=== PATIENT | female | born 1970 | race Caucasian/White ===

== ENCOUNTER → 2018-04-11 | Outpatient (CLI) | payer BC ==
--- NOTE | 2018-04-11 16:17 | PCVCIMAG ---
APPROVED REPORT Study performed: 04/11/2018 12:04:26 EXAM: Comprehensive 2D, Doppler, and color-flow Echocardiogram Patient Location: Echo lab Room #: 2Status: routine BSA: 1.98 HR: 46 bpmBP: 112/76 mmHg Rhythm: Bradycardia Other Information Study Quality: Good Indications Abnormal ECG Syncope 2D Dimensions IVSd: 7.88 (7-11mm)LVOT Diam: 22.34 (18-24mm) LVDd: 49.44 mm PWd: 6.86 (7-11mm)Ascending Ao: 21.11 (22-36mm) LVDs: 31.11 (25-40mm) Left Atrium: 34.28 (27-40mm) Aortic Root: 25.03 mm LV Single Plane 4CH: 57.00 % LV Single Plane 2CH: 66.62 % Biplane EF: 60.6 % Volumes Left Atrial Volume (Systole) Single Plane 4CH: 63.92 mLSingle Plane 2CH: 54.02 mL Biplane LA Volume: 60.00 mLLA ESV Index: 31.00 mL/m2 Aortic Valve AoV Peak Bakari.: 1.14 m/s AO Peak Gr.: 5.60 mmHgLVOT Max P.76 mmHg LVOT Max V: 0.97 m/s LURDES Vmax: 3.34 cm2 Mitral Valve E/A Ratio: 1.6 MV Decel. Time: 223.62 ms MV E Max Bakari.: 0.75 m/s MV A Bakari.: 0.48 m/s IVRT: 69.20 ms TDI E/Lateral E': 6.25E/Medial E': 9.38 Medial E' Bakari.: 0.08 m/s Lateral E' Bakari.: 0.12 m/s Pulmonary Valve PV Peak Bakari.: 0.76 m/sPV Peak Gr.: 2.30 mmHg Pulmonary Vein P Vein S: 0.38 m/sP Vein A: 0.27 m/s P Vein D: 0.41 m/sP Vein A Dur.: 115.3 msec P Vein S/D Ratio: 0.93 Tricuspid Valve TR Peak Bakari.: 1.59 m/s TR Peak Gr.: 10.06 mmHg TV Vmax: 0.71 m/s Left Ventricle The left ventricle is normal size. There is normal LV segmental wall motion. There is normal left ventricular wall thickness. Left ventricular systolic function is normal. The left ventricular ejection fraction is within the normal range. LVEF is 55-60%. The left ventricular diastolic function is normal. Right Ventricle The right ventricle is normal size. The right ventricular systolic function is normal. Atria The left atrium size is normal. The right atrium size is normal. Aortic Valve The aortic valve is normal in structure. No aortic regurgitation is present. There is no aortic valvular stenosis. Mitral Valve The mitral valve is normal in structure. There is no mitral valve regurgitation noted. No evidence of mitral valve stenosis. Tricuspid Valve The tricuspid valve is normal in structure. Trace tricuspid regurgitation. Pulmonic Valve The pulmonary valve is normal in structure. There is no pulmonic valvular regurgitation. Great Vessels The aortic root is normal in size. The ascending aorta is normal in size. Aortic arch is normal in caliber. IVC is normal in size and collapses >50% with inspiration. Pericardium There is no pericardial effusion. There is no pleural effusion. <Conclusion> The left ventricle is normal size. LVEF is 55-60%. The aortic valve is normal in structure. The mitral valve is normal in structure. The tricuspid valve is normal in structure. Trace tricuspid regurgitation. The pulmonary valve is normal in structure. There is no pericardial effusion. There is no pleural effusion.
== END | disposition home or self-care (01) ==
LOC: PCVCIMAG 14:54
PROVIDERS: ATTEND Internal Medicine
DX: R55 Syncope and collapse (principal)
CPT/HCPCS: 93306

== ENCOUNTER → 2018-04-15 | Outpatient (CLI) | payer BC ==
--- NOTE | 2018-04-29 13:42 | PCVCIMAG ---
APPROVED REPORT Patient Location: Echo lab Room #: Stress Nurse: Jessy Lord RN Treadmill Stress Test indications- syncope The patient exercised according to the NORMA protocol for 10 mins; achieving a work level of 13.4 METS. The resting heart rate of 76 bpm karina to a maximum heart rate of 153 bpm. This value represent 87% of the maximal, age-predicted heart rate. The resting blood pressure of 102/70 mmHg, karina to a maximum blood pressure of 140/74 mmHg. The exercise test was stopped due to fatigue and dyspnea. Conclusion 1. Subjectively negative for ischemia 2. Electrocardiographically negative for ischemia 3. Excellent functional capacity 4. No evidence of chronotropic incompetence
== END | disposition home or self-care (01) ==
LOC: PCVCIMAG 09:29
PROVIDERS: ATTEND Internal Medicine
DX: R55 Syncope and collapse (principal); R06.00 Dyspnea, unspecified; R53.83 Other fatigue
CPT/HCPCS: 93017

== ENCOUNTER → 2018-05-27 | Outpatient (CLI) | payer BC ==
[~2018-05-27] MED LIST: LIDOCAINE 1%/EPI 1:100,000 20 ML VIAL. ONE
--- NOTE | 2018-05-27 13:22 | PCVCINTER ---
APPROVED REPORT Patient Location: Out-Patient Room #: 1 Stress Nurse: Procedure: Insertion of an implantable loop recorder Indications: 47-year-old female patient with bradycardia and syncope Device: [employer] confirm Rx [id number] [id number] serial number [id number] Brief description of procedure: After informed consent was obtained the patient brought to the cardiac observation appropriate hold. The chest was prepped and draped in the usual sterile manner. The proposed incision site was then anesthetized with 1% lidocaine with epinephrine and the proposed tract was also anesthetized utilizing a spinal needle. With a blade a small incision was then made and using both sharp and blunt dissection a pocket was generated parallel to the sternal axis. Utilizing the enclosed insertion device the device was then placed. Simple interrupted suture was then placed subcutaneously covering the tract subcutaneous muscle and tissue. The skin was then closed with a 30 absorbable subcuticular stitch. Skin was opposed to further with Steri-Strips. 4 x [address] Patient pallor procedure well. EBL: 0 Conclusion 1. Successful implantation of a [employer] implantable loop recorder
== END | disposition home or self-care (01) ==
LOC: PCVCINTER 12:00
PROVIDERS: ATTEND Internal Medicine
DX: R55 Syncope and collapse (principal); R00.1 Bradycardia, unspecified; Z90.710 Acquired absence of both cervix and uterus; Z98.890 Other specified postprocedural states; Z90.3 Acquired absence of stomach [part of]; Z82.49 Family history of ischemic heart disease and other diseases of the circulatory system; Z87.891 Personal history of nicotine dependence; Z88.8 Allergy status to other drugs, medicaments and biological substances; Z79.899 Other long term (current) drug therapy
CPT/HCPCS: 33282; C1764; J3490